=== PATIENT | male | born 1955 | race Caucasian/White ===

== ENCOUNTER 2020-06-30 10:25 | Observation (INO) | payer BC ==
[~2020-06-30] VITALS: Ht 177.8 cm; Wt 89.6 kg
[2020-06-30 10:57] VITALS: BP 133/61
[2020-06-30] MEDS ORDERED: SODIUM CHLORIDE 0.9% 1,000 ML IV SCH (11:00)
[2020-06-30] MEDS ORDERED: BUPR300T94 PO (11:11)
[2020-06-30] MEDS ORDERED: VERA180T6 PO (11:11)
[2020-06-30 11:46] LABS: BASOPHILS % (AUTO) 1 % (0-1); EOSINOPHILS % (AUTO) 4 % (1-7); LYMPHOCYTES % (AUTO) 16 % (22-44); MEAN CORPUSCULAR HEMOGLOBIN 32.3 pg (27.5-34.5); MEAN CORPUSCULAR HGB CONC 33.9 g/dL (33.2-36.2); MONOCYTES % (AUTO) 12 % (2-9); NEUTROPHILS % (AUTO) 67 % (42-75); PLATELET COUNT 148 x10^3/uL (130-400); RED BLOOD COUNT 4.64 x10^6/uL (4.38-5.82); RED CELL DISTRIBUTION WIDTH 13.8 % (9.4-14.8)
[2020-06-30 11:51] LABS: MD NO
[2020-06-30 11:55] LABS: ANION GAP 6 mmol/L (5-15); CALCIUM 8.8 mg/dL (8.5-10.1); CHLORIDE 111 mmol/L (98-107)
[2020-06-30 11:56] LABS: CREATININE 1.06 mg/dL (0.7-1.3)
[2020-06-30] MEDS ORDERED: LIDOCAINE 1%, 20ML ONE (12:26)
[2020-06-30] MEDS ORDERED: MIDAZOLAM 1 MG/ML, 5ML ONE (12:29)
[2020-06-30] MEDS ORDERED: FENTANYL PF 100 MCG/2ML ONE (12:29)
[2020-06-30] MEDS ORDERED: HEPARIN 1,000 UNITS/ML, 10ML ONE (12:35)
[2020-06-30] MEDS ORDERED: ISOPROTERENOL 0.2MG/ML, 5ML ONE (12:46)
[2020-06-30] MEDS ORDERED: ONDANSETRON 2MG/ML, 2ML ONE (12:57)
[2020-06-30] MEDS ORDERED: PROTAMINE SULFATE 10 MG/ML, 5ML ONE (14:59)
[2020-06-30] MEDS: FLECAINIDE 100MG TABLET PO SCH (17:56)
[2020-06-30 20:22] VITALS: BP 109/73
[2020-06-30] MEDS: ACETAMINOPHEN 325 MG TABLET PO PRN (21:16)
[2020-06-30] MEDS ORDERED: TEMAZEPAM 15 MG CAPSULE PO PRN (21:30)
[2020-07-01 00:36] VITALS: BP 111/73
[2020-07-01] MEDS: ACETAMINOPHEN 325 MG TABLET PO PRN (05:20)
[2020-07-01] MEDS: FLECAINIDE 100MG TABLET PO SCH (05:20)
[2020-07-01 05:21] VITALS: BP 116/71
[2020-07-01 07:12] VITALS: BP 111/73
[2020-07-01] MEDS ORDERED: VERAPAMIL ER 180MG TABLET.ER PO SCH (09:00)
[2020-07-01] MEDS ORDERED: BUPROPION SR 150 MG TABLET PO SCH (09:00)
[2020-07-01] MEDS ORDERED: FLEC100T PO (09:11)
[2020-07-01] MEDS ORDERED: VERA180C2 PO (09:19)
== END 2020-07-01 11:15 | disposition home or self-care (01) ==
LOC: CACL 10:25 → 5SO 14:54 → DCLOUNGE 07-01 10:57
PROVIDERS: ADMIT Internal Medicine Cardiovascular Disease; ATTEND Internal Medicine Cardiovascular Disease
DX: I47.2 Ventricular tachycardia (principal); I49.3 Ventricular premature depolarization; F10.10 Alcohol abuse, uncomplicated; F19.10 Other psychoactive substance abuse, uncomplicated; Z79.899 Other long term (current) drug therapy
CPT/HCPCS: 36415; 71046; 75625; 80048; 85025; 85347; 93306; 93454; 93654; 99156; 99157; C1730; C1760; C1769; C1894; C2630; G0378; J1644; J2250; J2405; J2720; J3010; J3490; Q9967